=== PATIENT | female | born 1980 | race Caucasian/White ===

== ENCOUNTER 2018-02-06 15:21 | Inpatient (IN) | payer MEDICAID ==
[~2018-02-06] VITALS: Ht 149.9 cm; Wt 83.2 kg
[~2018-02-06 15:21] MED LIST: PREN1TAB49
[2018-02-06] MEDS: LACTATED RINGER'S 1,000 ML IV SCH ×3 (16:10→17:23)
[2018-02-06] MEDS ORDERED: OXYTOCIN 30 UNITS/LR 500 ML IV PRN ×2 (16:30→17:30)
[2018-02-06] MEDS ORDERED: CARBOPROST 250 MCG INJ IM PRN ×2 (16:30→17:30)
[2018-02-06] MEDS ORDERED: MISOPROSTOL 200 MCG TAB PR PRN ×2 (16:30→17:30)
[2018-02-06] MEDS ORDERED: METHYLERGONOVINE 0.2 MG INJ IM PRN ×2 (16:30→17:30)
[2018-02-06] MEDS ORDERED: AMPICILLIN 2 GM/NS (PMX) 100 ML IV SCH (16:30)
[2018-02-06 16:38] VITALS: Ht 149.9 cm; Wt 83.2 kg
[2018-02-06 16:39] VITALS: BP 123/68; PULSE 80; RESP 17
[2018-02-06] MEDS ORDERED: ONDANSETRON 4 MG INJ IV STA (16:59)
[2018-02-06] MEDS ORDERED: FAMOTIDINE 20 MG INJ IV ONE (17:00)
[2018-02-06] MEDS ORDERED: METOCLOPRAMIDE 10 MG INJ IV ONE (17:00)
--- NOTE | 2018-02-06 17:10 | PREAC ---
Date/Time of Note Date/Time of Note DATE: 02/06/18 TIME: 17:08 Anesthesia Eval and Record Evaluation Time Pre-Procedure Interview DATE: 02/06/18 TIME: 17:08 Age 37 Sex female NPO: 8 hrs Preoperative diagnosis term labor, prev Csection Planned procedure repeat Csection Past Medical History Past Medical History: None Surgery & Anesthesia Issues No known issue Meds Anticoagulation: No Beta Gurvinder within 24 hr: No Reason Beta Gurvinder not given: Pt. not on B-Gurvinder Reported Medications Vits W-Ca,Fe,Fa(<1MG) () 1 Tab Tablet 07/25/10 Current Medications Lactated Ringer's 1,000 ml @ 125 mls/hr Q8H IV ; Start 02/06/18 at 17:01 Cefazolin Sodium/ Dextrose 50 ml @ 100 mls/hr ONCE IVPB ; Start 02/06/18 at 17:30 Oxytocin/Lactated Ringer's 500 ml @ 125 mls/hr POST IV ; Start 02/06/18 at 17:30 Oxytocin/Lactated Ringer's 500 ml @ 0 mls/hr ONCE PRN IV VAGINAL BLEEDING; Start 02/06/18 at 17:30 Methylergonovine Maleate (Methergine) 0.2 mg ONCE PRN IM VAGINAL BLEEDING; Start 02/06/18 at 17:30 Carboprost Tromethamine (Hemabate) 250 mcg ONCE PRN IM VAGINAL BLEEDING; Start 02/06/18 at 17:30 Misoprostol (Cytotec) 1,000 mcg ONCE PRN AL VAGINAL BLEEDING; Start 02/06/18 at 17:30 Meds reviewed: Yes Allergies Coded Allergies: No Known Allergies (Verified Allergy, Mild, 07/25/10) Allergies Reviewed: Yes Labs/Studies Labs Reviewed: Reviewed by anesthesiologist test: Positive Pre-procedure Exam Last vitals Vital Signs Date Temp Pulse Resp B/P (MAP) Pulse Ox O2 O2 Flow FiO2 Time Delivery Rate 02/06/18 98.5 80 17 123/68 Room Air 16:39 (86) Airway: Adequate mouth opening, Adequate thyromental dist Mallampati: Mallampati III Teeth: Normal Lung: Normal Heart: Normal ASA Physical Status ASA physical status: 2 Emergency: None Planned Anesthetic Neuraxial: Spinal Planned Pain Management Sub-arachniod narcotics, Parenteral pain med, Other neuraxial med Pre-operative Attestations Prior to commencing anesthesia and surgery, the patient was re-evaluated, there was verification of: *The patient's identity *The results of appropriate recent lab work and preoperative vital signs *The above evaluation not changing prior to induction *Anesthetic plan, risk benefits, alternative and complications discussed with patient/family; questions answered; patient/family understands, accepts and wishes to proceed. ISAC PIZARRO MD Feb 06, 2018 17:09
[2018-02-06] MEDS ORDERED: HYDROmorphONE 0.5 MG/0.5 ML SYG IV PRN ×2 (17:30)
[2018-02-06] MEDS ORDERED: OXYTOCIN 30 UNITS/LR 500 ML IV SCH (17:30)
[2018-02-06] MEDS ORDERED: HYDROmorphONE 1 MG/5 ML IV SYRINGE IV PRN ×3 (17:30)
[2018-02-06] MEDS ORDERED: NALOXONE (0.4 MG/ML) INJ IV PRN (17:30)
[2018-02-06] MEDS ORDERED: ONDANSETRON 4 MG INJ IV PRN ×2 (17:30)
[2018-02-06] MEDS ORDERED: FENTAnyl 50 MCG/ML VIAL IV PRN ×2 (17:30)
[2018-02-06] MEDS ORDERED: KETOROLAC 30 MG INJ IV PRN ×2 (17:30)
[2018-02-06] MEDS ORDERED: CEFAZOLIN 2 GM/50 ML (PMX) 50 ML IVPB SCH (17:30)
[2018-02-06] MEDS ORDERED: DIPHENHYDRAMINE 50 MG INJ IV PRN ×2 (17:30)
[2018-02-07] MEDS: LACTATED RINGER'S 1,000 ML IV SCH ×5 (01:17→18:41)
--- NOTE | 2018-02-07 01:24 | PAC ---
Date/Time of Note Date/Time of Note DATE: 02/07/18 TIME: 01:24 Post-Anesthesia Notes Post-Anesthesia Note Last documented vital signs Vital Signs Date Temp Pulse Resp B/P (MAP) Pulse Ox O2 O2 Flow FiO2 Time Delivery Rate 02/06/18 98.5 80 17 123/68 Room Air 16:39 (86) Activity: WNL Respiratory function: WNL Cardiovascular function: WNL Mental status: Baseline Pain reasonably controlled: Yes Hydration appropriate: Yes Nausea/Vomiting absent: Yes ISAC PIZARRO MD Feb 07, 2018 01:24
[2018-02-07] MEDS ORDERED: METOCLOPRAMIDE 10 MG INJ ONE (10:16)
[2018-02-07] MEDS ORDERED: FAMOTIDINE 20 MG INJ ONE (10:23)
[2018-02-07] MEDS ORDERED: LACTATED RINGER'S 1,000 ML IV ONE (10:44)
[2018-02-07] MEDS ORDERED: CITRIC ACID/NA CITRATE 30 ML CUP PO ONE ×2 (11:00)
[2018-02-07] MEDS ORDERED: FAMOTIDINE 20 MG INJ IV ONE (11:00)
[2018-02-07] MEDS ORDERED: METOCLOPRAMIDE 10 MG INJ IV ONE (11:00)
[2018-02-07] MEDS ORDERED: morphine SULFATE/PF (10 MG/10 ML) INJ ONE (13:34)
[2018-02-07] MEDS ORDERED: PHENYLephrine (100 MCG/ML) 10ML SYG ONE (13:47)
[2018-02-07] MEDS ORDERED: FENTAnyl 50 MCG/ML VIAL IV PRN ×3 (14:00)
[2018-02-07] MEDS ORDERED: HYDROmorphONE 1 MG/5 ML IV SYRINGE IV PRN ×3 (14:00)
[2018-02-07] MEDS ORDERED: MEPERIDINE 25 MG INJ IV PRN (14:00)
[2018-02-07] MEDS ORDERED: KETOROLAC 30 MG INJ IV PRN (14:00)
[2018-02-07] MEDS ORDERED: DIPHENHYDRAMINE 50 MG INJ IV PRN ×2 (14:00→18:30)
[2018-02-07] MEDS ORDERED: EPHEDrine SULFATE 50 MG/5 ML SYG IV PRN (14:00)
[2018-02-07] MEDS ORDERED: ONDANSETRON 4 MG INJ IV PRN ×2 (14:00→18:30)
[2018-02-07] MEDS ORDERED: PROCHLORPERAZINE 10 MG INJ IV PRN (14:00)
[2018-02-07] MEDS ORDERED: EPHEDrine 25 MG/5 ML SYG ONE (14:09)
[2018-02-07] MEDS ORDERED: OXYTOCIN 30 UNITS/LR 500 ML IV ONE (14:34)
--- NOTE | 2018-02-07 15:14 | HP ---
Date/Time of Note Date/Time of Note DATE: 02/07/18 TIME: 15:11 OB - History Hx of Present Last Menstrual Period: May 09, 2017 Estimated Due Date: Feb 13, 2018 : 4 Para: 2 Spontaneous : 1 Care: Good Care Ultrasounds: Normal mid trimester US Obstetrical Complications: None, Other (Advanced maternal age) Medical Complications: None Past Family/Social History * Past Medical, Surgical, Family and Obstetric Histories reviewed from chart. Blood Type: A+ Rubella: immune RPR/VDRL: Negative GBS Status: Negative HBsAG: Negative OB Admission Exam Vital Signs Vital Signs Vital Signs Date Temp Pulse Resp B/P (MAP) Pulse Ox O2 O2 Flow FiO2 Time Delivery Rate 02/06/18 98.5 80 17 123/68 Room Air 16:39 (86) Physical Exam HEENT: WNL Heart: Rhythm Normal Lungs: Clear, Equal Abdomen: WNL Extremities: Normal Reflexes: Normal Effacement: 0% Station: -3 Membranes: Intact Heart Rate: 140's Accelerations: Accelerations Present Decelerations: No Decelerations Varibility: Marked Contractions on Admission: None Last 72 hours Lab Results CBC & BMP 02/06/18 16:00 OB Assessment/Plan Reason for admission: section Other Assessment: Term gestation Previous x2 Desires sterilization Other plan: Repeat and tubal ligation ESTUARDO CHIRINOS MD Feb 07, 2018 15:14
--- NOTE | 2018-02-07 15:18 | OPR ---
Operative Report Planned Procedure Free Text/Dictation 37-year-old female admitted for repeat section and tubal ligation Procedure date Feb 07, 2018 Procedure(s) Repeat and tubal ligation Performed by see signature line Consumer Safety Officer: RAVI DEGROOT MD Anesthesiologist: DEDE LAMBERT MD Pre-procedure diagnosis Term gestation Previous x2 Desired sterilization [id number] Anesthesia Type: [id number] spinal Post-Procedure Post-procedure diagnosis Status post repeat and tubal ligation Findings Live Baby Clear amniotic fluid Estimated Blood Loss: 500 - 600 mls Specimen(s) Segments of right and left fallopian tube Grafts/Implant(s) none Complication(s) none Pt Condition post procedure: stable Disposition: PACU Procedure Description Under satisfactory anaesthesia a Pfannenstiel incision was made two fingerbreadth above and parallel to the symphysis of pubis around the previous scar and previous scar was removed Incision was extended laterally to the border of the Recti muscles on either sides. Incision was carried down with sharp and blunt dissection until fascia was reached. Anterior Recti muscle fascia was incised in mid portion and incision extended laterally to the border of skin incision. Fascia was mobilized from muscle superiorly and Recti muscles were from midline using sharp and blunt dissection. Peritoneum was visualized; Avoiding bowel and bladder it was incised . Incision was extended superiorly and inferiorly. Bladder blade was placed. Posterior peritoneum covering the lower segment of the uterus and lower segment of the uterus were incised.Low transverse uterine incision was made on lower segment of the uterus. Incision extended laterally to the border of Round Lig. on either sides and baby was delivered from OT. position . Amniotic fluid appeared clear. Cord blood was obtained and cord had 3 vessels . Placenta was delivered spontaneously and appeared intact and complete. Intrauterine cavity was rubbed with a laparotomy sponge. Uterine incision was closed in 2 layers using running stitches of No1 Monocryl. Hemostasis appeared secure. Ovaries and Fallopian tubes were within normal limits. Left-sided broad ligament hematoma was controlled by opening the hematoma stitching the broad ligament at the base it, hemostasis became secure Bilateral Tubal Ligation was performed by following procedure: R fallopian tube was raised in mid portion; 3 cm below the raised area single 0 Plain Gut stitch was placed. Another 0 Plain gut stitch was placed half a centimeter below the first and a knuckle of tube that was formed was incised above the first stitch. Same procedure was done on fallopian tube on the opposite side. Hemostasis appeared to be secure on ligated sites of either fallopian tubes. Announcing needle, lap sponge and instrument count to be correct abdomen was closed in layers as follows: Peritoneum and Recti muscles with running stitches of 2-0 Vicryl. Fascia with running stitch of No 1 PDS. Subcutaneous tissue with running stitches of 2-0 Monocryl and skin was closed using kaz. Patient tolerated the procedure well and was transferred to [facility] in good condition. ESTUARDO CHIRINOS MD Feb 07, 2018 15:18
[2018-02-07] MEDS ORDERED: AZITHROMYCIN 500MG/NS (PMX) 250 ML IVPB ONE (15:30)
[2018-02-07 17:30] VITALS: BP 112/63; PULSE 81; RESP 17
[2018-02-07] MEDS ORDERED: LANOLIN HPA 1 PKT TOP PRN (18:00)
[2018-02-07] MEDS ORDERED: OXYTOCIN 30 UNITS/LR 500 ML IV PRN (18:00)
[2018-02-07] MEDS ORDERED: METHYLERGONOVINE 0.2 MG INJ IM PRN (18:00)
[2018-02-07] MEDS ORDERED: CARBOPROST 250 MCG INJ IM PRN (18:00)
[2018-02-07] MEDS ORDERED: CEFAZOLIN 2 GM/50 ML (PMX) 50 ML IVPB SCH (18:00)
[2018-02-07] MEDS ORDERED: HYDROCODONE/APAP (5/325) TAB PO PRN (18:00)
[2018-02-07] MEDS ORDERED: NA PHOSPHATE/BIPHOS 133 ML ENEMA PR PRN (18:00)
[2018-02-07] MEDS ORDERED: MISOPROSTOL 200 MCG TAB PR PRN (18:00)
[2018-02-07 18:26] VITALS: BP 93/50; PULSE 83; RESP 16
[2018-02-07] MEDS ORDERED: HYDROmorphONE 0.5 MG/0.5 ML SYG IV PRN ×2 (18:30)
[2018-02-07] MEDS ORDERED: ZOLPIDEM 5 MG TAB PO PRN (18:30)
[2018-02-07] MEDS ORDERED: NALOXONE (0.4 MG/ML) INJ IV PRN (18:30)
[2018-02-07] MEDS: CLINDAMYCIN 300 MG CAP PO SCH (18:40)
--- NOTE | 2018-02-07 19:18 | NUR ---
EOSS: ADMITTED PATIENT AT 1725 PM. ROOM AND UNIT ORIENTATION GIVEN. VS WNL, VOIDING VIA DSOUZA CATHETER, SURGICAL DRESSING, BONDING WELL WITH BABY. CBC IN AM.
[2018-02-07 19:50] VITALS: BP 102/54; PULSE 63; RESP 16
[2018-02-07] MEDS: KETOROLAC 30 MG INJ IV PRN (20:59)
[2018-02-07] MEDS: SENNA/DOCUSATE NA (8.6MG/50MG) TAB PO SCH (21:00)
[2018-02-07] MEDS: CEFAZOLIN 2 GM/50 ML (PMX) 50 ML IVPB SCH (21:00)
[2018-02-08 00:40] VITALS: BP 108/67; PULSE 81; RESP 18
[2018-02-08] MEDS: CLINDAMYCIN 300 MG CAP PO SCH ×4 (00:46→17:54)
[2018-02-08] MEDS: LACTATED RINGER'S 1,000 ML IV SCH ×2 (02:48→11:14)
[2018-02-08 04:00] VITALS: BP 101/61; PULSE 74; RESP 18
[2018-02-08] MEDS: CEFAZOLIN 2 GM/50 ML (PMX) 50 ML IVPB SCH ×2 (05:10→13:06)
--- NOTE | 2018-02-08 05:35 | NUR ---
E.O.S.S. Patient in stable condition. Vital signs stable and systemic sounds WNL. No colostrum with hand expression. Supplementing with formula per request.
[2018-02-08] MEDS: KETOROLAC 30 MG INJ IV PRN ×2 (06:30→13:07)
[2018-02-08 08:00] VITALS: BP 100/55; PULSE 73; RESP 19
[2018-02-08] MEDS: SENNA/DOCUSATE NA (8.6MG/50MG) TAB PO SCH ×2 (09:02→22:08)
[2018-02-08] MEDS ORDERED: BISACODYL 10 MG SUPP PR ONE ×2 (10:30→23:49)
[2018-02-08 12:10] VITALS: BP 95/57; PULSE 84; RESP 18
--- NOTE | 2018-02-08 14:10 | NUR ---
D/C IV AND DSOUZA CATHETER AT THIS TIME. TIP INTACT, PATIENT TOLERATED WELL. INSTRUCTED PATIENT TO CALL FOR ASSISTANCE WITH BATHROOM USE AND NEEDED. PATIENT VERBALIZED UNDERSTANDING. PATIENT UP TO CHAIR AND TOLERATED WELL.
--- NOTE | 2018-02-08 14:15 | NUR ---
PATIENT REFUSED SUPPOSITORY AT THIS TIME STATING MAYBE LATER.
--- NOTE | 2018-02-08 14:27 | PN ---
Date/Time of Note Date/Time of Note DATE: 02/08/18 TIME: 14:27 Assessment/Plan VTE Prophylaxis VTE Prophylaxis Intervention: ambulation Lines/Catheters IV Catheter Type (from Nrsg): Peripheral IV Assessment/Plan Assessment/Plan Status post postop day #1 Continue to ambulate and advance diet Subjective 24 Hr Interval Summary No bowel movement but passing flatus Constitutional: no complaints, improved, ambulates, BM, flatus, urine output Pain Control: well controlled Exam/Review of Systems Vital Signs Vitals Vital Signs Date Temp Pulse Resp B/P (MAP) Pulse Ox O2 O2 Flow FiO2 Time Delivery Rate 02/08/18 98.7 84 18 95/57 (70) 96 Room Air 12:10 Intake and Output 02/07/18 02/07/18 02/08/18 1515:00 23:00 07:00 IntakeIntake Total 500 ml 1000 ml OutputOutput Total 1156 ml 400 ml BalanceBalance -656 ml 600 ml Exam Free Text/Dictation Abdomen is soft present bowel sounds and abdomen does not seem distended Incision is covered Constitutional: alert, oriented, well developed Psych: no complaints, nl mood/affect Head: normocephalic, atraumatic Eyes: nl conjunctiva, EOMI, nl lids, nl sclera ENMT: nl external ears & nose, nl lips & teeth, nl nasal mucosa & septum, mucosa pink and moist Neck: supple, non-tender Respiratory: clear to auscultation, normal air movement Cardiovascular: regular rate and rhythm, nl pulses Gastrointestinal: soft, nl liver, spleen, non-tender Musculoskeletal: nl extremities to inspection, nl gait and stance Extremities: normal pulses Neurological: MANUFACTURING WEAVER II-XII intact, nl mental status, nl speech, nl strength Skin: nl turgor, rash or lesions Lymph: nl lymph nodes Results Result Diagram: 02/08/18 0653 ESTUARDO CHIRINOS MD Feb 08, 2018 14:27
[2018-02-08 16:02] VITALS: BP 112/68; PULSE 87; RESP 19
--- NOTE | 2018-02-08 16:20 | NUR ---
DR. AYON IS IN THE PATIENT ROOM AND NOTIFIED BY PATIENT THAT SHE REFUSED SUPPOSITORY STATING MAYBE LATER.
--- NOTE | 2018-02-08 17:23 | NUR ---
EOSS: VS WNL, FUNDUS FIRM, MINIMAL LOCHIA, PATIENT AMBULATED IN THE HALLWAY. ABDOMINAL BINDER GIVEN. DUE TO VOID AFTER DSOUZA CATHETER REMOVAL. NO BM. BONDING WELL WITH BABY.
--- NOTE | 2018-02-08 17:55 | NUR ---
PATIENT VOIDED X 1 AT THIS TIME AFTER DSOUZA CATHETER REMOVAL. PATIENT REFUSED DULCOLAX SUPPOSITORY AGAIN AT THIS TIME. MINT RAVI AND PRUNE JUICE GIVEN PER PATIENT REQUEST.
[2018-02-08] MEDS: IBUPROFEN 800 MG TAB PO SCH ×2 (19:00→22:08)
[2018-02-08 20:05] VITALS: BP 119/72; PULSE 100; RESP 17
[2018-02-08] MEDS: OXYCODONE/ACETAMINOPHEN (5/325) TAB PO PRN (20:09)
[2018-02-09 03:50] VITALS: BP 106/59; PULSE 83; RESP 17
[2018-02-09] MEDS: OXYCODONE/ACETAMINOPHEN (5/325) TAB PO PRN ×3 (04:23→19:27)
--- NOTE | 2018-02-09 04:26 | NUR ---
EOSS stable, fundus firm & contracted, light lochia, passing gas- dulcolax supp, given - no bm yet, bonding well with baby, pain controlled with motrin & percocet po, ambulated ad neymar, still for shower- dressing dry & intact- for removal.
[2018-02-09] MEDS: IBUPROFEN 800 MG TAB PO SCH ×3 (05:36→21:49)
[2018-02-09] MEDS: CLINDAMYCIN 300 MG CAP PO SCH ×4 (05:36→17:55)
[2018-02-09 09:00] VITALS: BP 114/57; PULSE 74; RESP 18
[2018-02-09] MEDS: SENNA/DOCUSATE NA (8.6MG/50MG) TAB PO SCH ×2 (09:18→21:48)
--- NOTE | 2018-02-09 11:00 | NUR ---
referral for consult. MOB does not have any expressible milk at this time. MOB is bottle feeding formula. MOB stated she still latches baby on first and baby will latch on well. MOB denies pain when baby is at the breast. Offered SNS and explained how it can help build her supply. MOB will call at the next feeding to assist with SNS. Provided ext.
--- NOTE | 2018-02-09 14:00 | NUR ---
SET PT UP WITH THE BREAST PUMP PER REQUEST. SHOWED HOW TO CLEAN AND SET PUMP UP FOR EACH FEEDING
[2018-02-09 16:00] VITALS: BP 104/63; PULSE 82; RESP 18
--- NOTE | 2018-02-09 16:48 | DS ---
Date/Time of Note Date/Time of Note Home today or next day DATE: 02/09/18 TIME: 16:45 Obstetrical Discharge Record Final Diagnosis Final Diagnosis: Term delivered Other Final Diagnosis Status post C/S Section Section: Repeat Condition on Discharge Physical Assessment Last Vitals: See nurse's notes Voiding: Yes Bowel Movement: Yes Breast: Soft, non-tender, Filling Fundus: Firm Abdomen and Incision: Abdomen is soft present bowel sounds Incision is without induration and or erythema Episiotomy: Not applicable Calf Tenderness: No Patient Condition: Good ESTUARDO CHIRINOS MD Feb 09, 2018 16:48
--- NOTE | 2018-02-09 16:53 | DS ---
Date/Time of Note Date/Time of Note DATE: 02/09/18 TIME: 16:49 Discharge Summary Admission/Discharge Info Admit Date/Time Feb 06, 2018 at 15:21 Discharge Date/Time 37-year-old female had repeat Discharge Diagnosis Status post repeat Patient Condition: Good Procedures Repeat Hx of Present Illness 37-year-old female underwent repeat Hospital Course Hospital course remained uncomplicated Tolerated diet well and was ambulating without complications Was discharged home on the second or third day with good prognosis in good condition Home Meds Reported Medications Vits W-Ca,Fe,Fa(<1MG) () 1 Tab Tablet 07/25/10 Follow-up Plan 2 or 3 days in clinic for staple removal Primary Care Provider Care Physician No Primary Time spent on discharge: > 30 minutes Pending Labs Laboratory Tests Test 02/09/18 09:25 Bedside Glucose 89 mg/dL (70-220) ESTUARDO CHIRINOS MD Feb 09, 2018 16:53
--- NOTE | 2018-02-09 16:54 | PD.PPDC ---
ENERGY PROJECT ENGINEER Discharge Instruction Provider Information Physician Information 37-year-old female with repeat Diagnosis [id number] Final Diagnosis: Jhgja3g Status post Condition [id number] Patient Condition: Dbwdr1z Good Diet Ohymf6Ws Diet: Ugefz1l Resume Regular Diet Activity/Restrictions Ozhof0Vy Activity: Ninco1m May Shower [id number] Restrictions: Aojhl2i No Exercising No Lifting Nothing in the Vagina [id number] Return to Work or School: Zmgre1i Apr 08, 2018 Wound/Drain Care Instructions [id number] Wound/Drain Care Instructions: Xkyls1h Keep clean and dry Follow-up Follow-up with Physician: 2, 3, Day/Days (In clinic for staple removal) Return to clinic for Ibizp5Dk STUDENT DEVELOPMENT ADVISOR Instructions: Lwvce2y Fever greater than 101 Chills [id number] OB Instructions: Abngi9l Breast Tenderness Depression Comment: Pelvic rest and no hard activity for 2 months Eketk5Qk Surgical Instructions: Mayqc9h Incisional Drainage Incisional Redness ESTUARDO CHIRINOS MD Feb 09, 2018 16:54
[2018-02-09] MEDS ORDERED: IBUP800T48 PO (16:56)
[2018-02-09] MEDS ORDERED: ACET325T33 PO (16:56)
[2018-02-09] MEDS: ACETAMINOPHEN 325 MG TAB PO SCH (17:00)
--- NOTE | 2018-02-09 18:09 | NUR ---
EOSS: VSS. AMBULATING AND VOIDING. SHOWERED TODAY. GOOD BONDING WITH THE BABY SEEN. BOTTLE FEEDING BECAUSE MOM HAS NO EXPRESSABLE COLOSTRUM BUT IS PUMPING TO STIMULATE BREASTS.
[2018-02-09 20:30] VITALS: BP 104/72; PULSE 86; RESP 19
[2018-02-10] MEDS: CLINDAMYCIN 300 MG CAP PO SCH ×2 (00:03→05:54)
[2018-02-10 03:50] VITALS: BP 105/53; PULSE 75; RESP 17
--- NOTE | 2018-02-10 04:13 | NUR ---
EOSS v/s stable, fundus firm & contracted, light lochia, voiding well, had bm last night, pain controlled with motrin & percocet, ambulated ad neymar, for discharge today.
[2018-02-10] MEDS: IBUPROFEN 800 MG TAB PO SCH (05:55)
[2018-02-10] MEDS: ACETAMINOPHEN 325 MG TAB PO SCH ×2 (06:00)
[2018-02-10 07:30] VITALS: BP 134/83; PULSE 75; RESP 18
[2018-02-10] MEDS ORDERED: MEASLES,MUMPS,RUBELLA VACCINE INJ SC* ONE (09:00)
[2018-02-10] MEDS ORDERED: DIPHTH/TET/ACEL PERTUSS (ADULT) 0.5 ML VIAL IM* ONE (09:00)
[2018-02-10] MEDS: SENNA/DOCUSATE NA (8.6MG/50MG) TAB PO SCH (09:34)
--- NOTE | 2018-02-10 10:56 | NUR ---
DISCHARGE INSTRUCTIONS GIVEN AND PT VERBALIZED UNDERSTANDING OF ALL INFO GIVEN AND ALL QUESTIONS ANSWERED. DC'D HOME IN STABLE COND VIA WHEELCHAIR WITH BABY.
== END 2018-02-10 12:55 | disposition home or self-care (01) | DRG 785 ==
LOC: L-D 15:21 → PP1 02-07 17:29
PROVIDERS: ADMIT Obstetrics & Gynecology; ATTEND Obstetrics & Gynecology
PROC: 0UL70ZZ Occlusion of Bilateral Fallopian Tubes, Open Approach (ICD-10-PCS; 2018-02-07)
PROC: 10D00Z1 Extraction of Products of Conception, Low, Open Approach (ICD-10-PCS; principal; 2018-02-07 14:00)
DX: O34.211 Maternal care for low transverse scar from previous cesarean delivery (principal); Z3A.39 39 weeks gestation of pregnancy; Z37.0 Single live birth; Z30.2 Encounter for sterilization
CPT/HCPCS: 82962; 85025; 85610; 85730; 86592; 86850; 86900; 86901; 87340; 88302; 99464; J0456; J0690; J1200; J1885; J2274; J2370; J2405; J2590; J2765; J7120